=== PATIENT | male | born 1995 | race Caucasian/White ===

== ENCOUNTER 2017-10-18 18:47 | Emergency (ER) | payer OTHER ==
--- NOTE | 2017-10-18 18:57 | PDOC ---
History of Present Illness - History of Present Illness Initial Comments: 10/18/17 19:05 Patient is a 21M, with PMHx of seizures (last known seizure 2 years ago), nonverbal at baseline, who was BIBA from home, s/p seizure. As per EMS, seizure occurred approximately 30 mins prior to arrival, lasted for approximately 2 minutes. Patient was seated during clonic episode, no reports of head trauma. This was his first seizure in 2 years. As per EMS, denies biting tongue, head trauma. Neurologist - Dr. Bryan Rivas @ [facility]: [phone] <Monserrat Peck - Last Filed: 10/18/17 20:11> <Jayna Griffin - Last Filed: 10/18/17 20:53> - General Chief Complaint: Seizure Stated Complaint: SEIZURE Time Seen by Provider: 10/18/17 18:53 Past History <Monserrat Peck - Last Filed: 10/18/17 20:11> <Jayna Griffin - Last Filed: 10/18/17 20:53> - Past Medical History Allergies/Adverse Reactions: Allergies Allergy/AdvReac Type Severity Reaction Status Date / Time No Known Allergies Allergy Verified 10/18/17 19:13 Home Medications: Ambulatory Orders Sertraline HCl [Zoloft] 125 mg PO DAILY 10/18/17 Topiramate [Topamax] 150 mg PO BID 10/18/17 Review of Systems - Review of Systems Able to Perform ROS?: No (nonverbal at baseline) <Monserrat Peck - Last Filed: 10/18/17 20:11> *Physical Exam - Vital Signs Last Vital Signs Temp Pulse Resp BP Pulse Ox 98.1 F 91 H 18 127/93 93 L 10/18/17 18:57 10/18/17 18:57 10/18/17 18:57 10/18/17 18:57 10/18/17 18:57 - Physical Exam Comments: 10/18/17 19:06 GENERAL: Well developed, well nourished. Awake and alert. No acute distress. HEENT: Normocephalic, atraumatic. PERRLA, EOMI. No conjunctival pallor. Sclera are non- icteric. Moist mucous membranes. Oropharynx is clear. CARDIOVASCULAR: Regular rate and rhythm. No murmurs, rubs, or gallops. PULMONARY: No evidence of respiratory distress. Lungs clear to auscultation bilaterally. No wheezing, rales or rhonchi. ABDOMINAL: Soft. Non-tender. Non-distended. No rebound or guarding. MUSCULOSKELETAL Normal range of motion at all joints. No bony deformities or tenderness. No CVA tenderness. EXTREMITIES: No cyanosis. No clubbing. No edema. No calf tenderness. SKIN: Warm and dry. Normal capillary refill. No rashes. No jaundice. NEUROLOGICAL: Alert, awake, appropriate. No deficits to light touch and temperature in face, upper extremities and lower extremities. Moving all extremities. <Monserrat Peck - Last Filed: 10/18/17 20:11> ED Treatment Course - LABORATORY CBC & Chemistry Diagram: 10/18/17 19:20 10/18/17 19:20 - Additional Consults Time Called: 19:21 (Dr. Bryan Rivas) Consult/PCP: Neurologist (awaiting call back) Time Called: 19:57 Consult/PCP: Neuro - Dr. Mendoza , awaiting call back <Monserrat Peck - Last Filed: 10/18/17 20:11> - LABORATORY CBC & Chemistry Diagram: 10/18/17 19:20 10/18/17 19:20 <Jayna Griffin - Last Filed: 10/18/17 20:53> Medical Decision Making - Medical Decision Making 10/18/17 20:12 Tried to get ahold of Dr. Bryan Rivas (his neurologist at [facility]). Left messages, to no avail. Spoke to authorization nurse Neuro - Dr. Mendoza who suggested to up his medication 200mg BID until he gets to see his neurologist. <Monserrat Peck - Last Filed: 10/18/17 20:11> *DC/Admit/Observation/Transfer - Attestations Scribe Attestion: 10/18/17 19:09 Documentation prepared by Monserrat Peck, acting as senior medical billing specialist for Jayna Griffin MD. <Monserrat Peck - Last Filed: 10/18/17 20:11> <Jayna Griffin - Last Filed: 10/18/17 20:53> Diagnosis at time of Disposition: Seizure disorder - Discharge Dispostion Disposition: HOME Condition at time of disposition: Stable - Patient Instructions Printed Discharge Instructions: DI for Seizure Disorder -- Adult Additional Instructions: please see the neurologist tomorrow increase the topamax to 200mg twice daily
[2017-10-18 19:00] VITALS: BP 127/93; PULSE 91; TEMP 98.1; BMI 29.0
[2017-10-18 19:35] LABS: BASO % 0.2 % (0-2.0); HEMATOCRIT 38.1 % (35.4-49); HEMOGLOBIN 13.3 GM/dL (11.7-16.9); LYMPH % 18.4 % (8-40); MEAN CELL VOLUME 85.6 fl (80-96); MEAN PLT VOLUME 7.6 fl (7.5-11.1); MONO % 5.2 % (3.8-10.2); NEUT % 75.2 % (42.8-82.8); PLATELET COUNT 224 K/MM3 (134-434); RBC 4.45 M/mm3 (4.00-5.60); RDW 13.6 % (11.9-15.9); WHITE BLOOD COUNT 9.5 K/mm3 (4.0-10.0)
[2017-10-18] MEDS ORDERED: TOPIRAMATE 25 MG TABLET (FP) PO STA ×2 (19:52→20:09)
[2017-10-18 20:24] LABS: ALBUMIN 3.8 g/dl (3.4-5.0); ALK PHOS 111 U/L (45-117); ANION GAP 9 (8-16); BILIRUBIN,TOTAL 0.2 mg/dL (0.2-1.0); BLOOD UREA NITROGEN 14 mg/dL (7-18); CALCIUM 8.7 mg/dL (8.5-10.1); CHLORIDE 111 mmol/L (98-107); CO2 24 mmol/L (21-32); CREATININE 1.1 mg/dL (0.7-1.3); GLUCOSE,RANDOM 100 mg/dL (74-106); POTASSIUM 3.7 mmol/L (3.5-5.1); SGOT/AST 17 U/L (15-37); SGPT/ALT 54 U/L (12-78); SODIUM 144 mmol/L (136-145); TOT PROT 7.2 g/dl (6.4-8.2)
[2017-10-18] MEDS ORDERED: TOPIRAMATE 200 MG TABLET (FP) PO STA (20:36)
== END 2017-10-18 21:20 | disposition home or self-care (01) ==
LOC: JER 18:47
DX: G40.909 Epilepsy, unspecified, not intractable, without status epilepticus (principal)
CPT/HCPCS: 36415; 80053; 80201; 85025; 99284-25